=== PATIENT | female | born 1955 | race Caucasian/White ===

== ENCOUNTER 2020-06-22 10:37 | Observation (INO) ==
[2020-06-22] MEDS ORDERED: 0.9 % Sodium Chloride 1,000 ML IVC ONE (11:18)
[2020-06-22 11:35] LABS: Basophils % 0.1 %; Eosinophils # 0.1 K/mcL (0.0-0.6); Eosinophils % 0.3 %; Hematocrit 43.4 % (35.3-44.9); Hemoglobin 13.9 g/dL (11.5-15.4); Immature Granulocytes % 0.4 % (0-4); Lymphocytes # 1.4 K/mcL (0.6-4.6); Lymphocytes % 8.9 %; Mean Corpuscular Hemoglobin 30.8 pg (28.0-33.3); Mean Platelet Volume 8.8 fL (9.4-12.4); Monocytes # 1.3 K/mcL (0.0-1.3); Monocytes % 8.2 %; Neutrophils # 12.9 K/mcL (1.6-8.9); Platelet Count 327 K/mcL (140-400); Red Blood Count 4.52 M/mcL (3.82-4.97); Red Cell Distribution Width 16.1 % (11.5-14.5); Segmented Neutrophils % 82.1 %; White Blood Count 15.8 K/mcL (4.3-11.1)
[2020-06-22 11:43] LABS: INR 1.3
[2020-06-22 11:45] LABS: Activated Partial Thrombo Time 27.7 Seconds (26.0-36.0)
[2020-06-22 11:57] LABS: BUN/Creatinine Ratio 26 (6-26); Blood Urea Nitrogen 20 mg/dL (8-23); Carbon Dioxide 19 mEq/L (23-29); Chloride 102 mEq/L (98-107); Potassium 3.3 mEq/L (3.5-5.1); Sodium 133 mEq/L (136-145); eGFR For African Americans > 60 (> 60)
[2020-06-22 11:58] LABS: Alanine Aminotransferase 11 Units/L (7-52); Albumin 3.9 g/dL (3.5-5.7); Albumin/Globulin Ratio 1.2 (1.1-2.2); Alkaline Phosphatase 44 Units/L (34-104); Aspartate Amino Transferase 11 Units/L (13-39); Bilirubin,Direct 0.1 mg/dL (0.0-0.2); Bilirubin,Indirect 0.4 mg/dL (0.0-1.0); Bilirubin,Total 0.5 mg/dL (0.3-1.0); Calcium 9.1 mg/dL (8.6-10.3); Globulin 3.3 g/dL (2.4-3.5); Glucose 129 mg/dL (70-105); Osmolality,Calculated 280 (280-300); Total Protein 7.2 g/dL (6.4-8.9); Troponin I < 0.03 ng/mL (< 0.04); eGFR For Non-African Americans > 60 (> 60)
[2020-06-22] MEDS ORDERED: Potassium Chloride Elixir 20 MEQ/15 ML UDC PO ONE (12:18)
[2020-06-22 16:49] LABS: Adenovirus Not Detected (Not Detect); Bordetella Pertussis Not Detected (Not Detect); Chlamydophila pneumoniae Not Detected (Not Detect); Coronavirus 229E Not Detected (Not Detect); Coronavirus HKU1 Not Detected (Not Detect); Coronavirus NL63 Not Detected (Not Detect); Coronavirus OC43 Not Detected (Not Detect); Human Metapneumovirus Not Detected (Not Detect); Human Rhinovirus/Enterovirus Not Detected (Not Detect); Influenza A Subtype 2009 H1 Not Detected (Not Detect); Influenza B Not Detected (Not Detect); Mycoplasma pneumoniae Not Detected (Not Detect); Parainfluenza Virus 1 Not Detected (Not Detect); Parainfluenza Virus 2 Not Detected (Not Detect); Parainfluenza Virus 3 Not Detected (Not Detect); Parainfluenza Virus 4 Not Detected (Not Detect); Respiratory Syncytial Virus Not Detected (Not Detect); SARS-CoV-2 Not Detected (Not Detect)
[2020-06-22] MEDS ORDERED: Ondansetron 4 MG/2 ML VIAL IVP PRN (17:42)
[2020-06-22] MEDS ORDERED: Naloxone 0.4 MG/ML INJ IVP PRN (17:42)
[2020-06-22] MEDS ORDERED: D5% in Water 1,000 ML IVC PRN ×2 (18:29→18:33)
[2020-06-22] MEDS ORDERED: *HR* Dextrose 50 % in Water (Vial) 50 ML VIAL IVP PRN ×2 (18:29→18:33)
[2020-06-22] MEDS ORDERED: Dextrose Gel 15 GM/37.5 ML TUBE PO PRN ×4 (18:29→18:33)
[2020-06-22] MEDS ORDERED: Vancomycin 1,500 MG/265 ML IV.SOLN IVPB ONE (19:54)
[2020-06-22] MEDS ORDERED: Ipratropium/Albuterol Neb 3 ML IH PRN (20:30)
[2020-06-22] MEDS: Baclofen 10 MG TABLET PO SCH (21:30)
[2020-06-22] MEDS: Topiramate 100 MG TABLET PO SCH (21:30)
[2020-06-22] MEDS: Gabapentin 300 MG CAPSULE PO SCH (21:30)
[2020-06-22] MEDS: Insulin LISPRO 300 UNITS/3 ML VIAL SUBQ SCH (21:31)
[2020-06-22] MEDS: 0.9 % Sodium Chloride 1,000 ML IVC SCH (21:32)
[2020-06-22] MEDS: levoFLOXacin 750 MG/150 ML 750 MG/150 ML BAG IVPB SCH (22:02)
[2020-06-22 22:48] LABS: Amorphous Sediment,Urine Few per hpf (None-Few); Bacteria,Urine Few per hpf (None-Few); Bilirubin,Urine Negative (Negative); Blood,Urine Moderate (Negative); Clarity,Urine Turbid (Clear); Color,Urine Light-Yellow (Yellow); Glucose,Urine (UA) Normal (Normal); Ketones,Urine Negative (Negative); Leukocyte Esterase,Urine Large (Negative); Mucus,Urine Few per lpf (None-Few); Nitrite,Urine Negative (Negative); Protein,Urine Trace mg/dL (Neg-Trace); Specific Gravity,Urine 1.014 (1.010-1.025); Squamous Epithelial Cell,Urine Few per hpf (None-Few); Urobilinogen,Urine Normal (Normal); WBC,Urine TNTC per hpf (0-3)
[2020-06-23 04:28] LABS: Basophils % 0.3 %; Eosinophils # 0.1 K/mcL (0.0-0.6); Eosinophils % 1.1 %; Hematocrit 40.2 % (35.3-44.9); Immature Granulocytes % 1.2 % (0-4); Lymphocytes # 1.5 K/mcL (0.6-4.6); Lymphocytes % 14.5 %; Mean Corpuscular HGB Conc 30.6 g/dL (31.6-35.5); Mean Corpuscular Hemoglobin 30.1 pg (28.0-33.3); Mean Corpuscular Volume 98.5 fL (83.0-100.0); Mean Platelet Volume 8.8 fL (9.4-12.4); Monocytes % 9.2 %; Neutrophils # 7.8 K/mcL (1.6-8.9); Platelet Count 280 K/mcL (140-400); Red Blood Count 4.08 M/mcL (3.82-4.97); Segmented Neutrophils % 73.7 %; White Blood Count 10.6 K/mcL (4.3-11.1)
[2020-06-23 04:50] LABS: Hemoglobin 12.3 g/dL (11.5-15.4)
[2020-06-23 04:51] LABS: BUN/Creatinine Ratio 27 (6-26); Blood Urea Nitrogen 16 mg/dL (8-23); Calcium 8.4 mg/dL (8.6-10.3); Carbon Dioxide 19 mEq/L (23-29); Chloride 110 mEq/L (98-107); Glucose 113 mg/dL (70-105); Magnesium 1.9 mg/dL (1.6-2.6); Osmolality,Calculated 284 (280-300); Sodium 136 mEq/L (136-145); eGFR For African Americans > 60 (> 60); eGFR For Non-African Americans > 60 (> 60)
[2020-06-23 04:59] LABS: Thyroid Stimulating Hormone 0.278 mcIU/mL (0.340-5.600)
[2020-06-23] MEDS: Acetaminophen 325 MG TABLET PO PRN ×2 (05:12→20:50)
[2020-06-23 05:17] LABS: Estimated Average Glucose 146 mg/dl; Hemoglobin A1C 6.7 %
[2020-06-23] MEDS: 0.9 % Sodium Chloride 1,000 ML IVC SCH ×3 (06:19→23:14)
[2020-06-23] MEDS: *HR* Enoxaparin 40 MG/0.4 ML SYRINGE SQ SCH (06:20)
[2020-06-23] MEDS: Insulin LISPRO 300 UNITS/3 ML VIAL SUBQ SCH ×4 (07:39→20:46)
[2020-06-23] MEDS: Gabapentin 300 MG CAPSULE PO SCH ×3 (09:41→20:46)
[2020-06-23] MEDS: Topiramate 100 MG TABLET PO SCH ×2 (09:41→20:47)
[2020-06-23] MEDS: ARIPiprazole 5 MG TABLET PO SCH (09:41)
[2020-06-23] MEDS: Vancomycin 1,250 MG/262.5 ML IV.SOLN IVPB SCH ×2 (09:42→20:48)
[2020-06-23] MEDS: Baclofen 10 MG TABLET PO SCH ×3 (09:42→20:46)
[2020-06-23] MEDS: levoFLOXacin 750 MG/150 ML 750 MG/150 ML BAG IVPB SCH (09:43)
[2020-06-24] MEDS: *HR* Enoxaparin 40 MG/0.4 ML SYRINGE SQ SCH (06:00)
[2020-06-24 06:41] VITALS: BP 122/73
[2020-06-24 07:53] LABS: Basophils % 0.2 %; Eosinophils # 0.3 K/mcL (0.0-0.6); Eosinophils % 2.9 %; Hematocrit 37.5 % (35.3-44.9); Hemoglobin 11.6 g/dL (11.5-15.4); Immature Granulocytes % 0.3 % (0-4); Lymphocytes # 2.1 K/mcL (0.6-4.6); Lymphocytes % 22.9 %; Mean Corpuscular HGB Conc 30.9 g/dL (31.6-35.5); Mean Corpuscular Hemoglobin 30.8 pg (28.0-33.3); Mean Corpuscular Volume 99.5 fL (83.0-100.0); Mean Platelet Volume 9.5 fL (9.4-12.4); Monocytes % 10.9 %; Neutrophils # 5.6 K/mcL (1.6-8.9); Platelet Count 276 K/mcL (140-400); Red Blood Count 3.77 M/mcL (3.82-4.97); Red Cell Distribution Width 15.7 % (11.5-14.5); Segmented Neutrophils % 62.8 %
[2020-06-24] MEDS: Insulin LISPRO 300 UNITS/3 ML VIAL SUBQ SCH (08:03)
[2020-06-24 08:19] LABS: BUN/Creatinine Ratio 22 (6-26); Blood Urea Nitrogen 11 mg/dL (8-23); Calcium 8.6 mg/dL (8.6-10.3); Carbon Dioxide 16 mEq/L (23-29); Chloride 112 mEq/L (98-107); Glucose 110 mg/dL (70-105); Magnesium 1.7 mg/dL (1.6-2.6); Osmolality,Calculated 284 (280-300); Potassium 3.8 mEq/L (3.5-5.1); Sodium 137 mEq/L (136-145); eGFR For African Americans > 60 (> 60); eGFR For Non-African Americans > 60 (> 60)
[2020-06-24] MEDS: ARIPiprazole 5 MG TABLET PO SCH (08:51)
[2020-06-24] MEDS: Baclofen 10 MG TABLET PO SCH (08:52)
[2020-06-24] MEDS: levoFLOXacin 750 MG/150 ML 750 MG/150 ML BAG IVPB SCH (08:52)
[2020-06-24] MEDS: Gabapentin 300 MG CAPSULE PO SCH (08:52)
[2020-06-24] MEDS: Topiramate 100 MG TABLET PO SCH (08:52)
[2020-06-24] MEDS ORDERED: lisinopriL 5 MG TABLET PO SCH (09:00)
[2020-06-24] MEDS: Acetaminophen 325 MG TABLET PO PRN (09:03)
[2020-06-24] MEDS: 0.9 % Sodium Chloride 1,000 ML IVC SCH (09:04)
[2020-06-24] MEDS ORDERED: Propranolol LA (24 HR) 80 MG CAP.SA.24H PO SCH (17:00)
== END 2020-06-24 13:07 | disposition home or self-care (01) ==
LOC: EMEROOARM 10:37 → 2ANU 10:37 → SUATTDRO 16:59 → 2ANU 18:25
PROVIDERS: ADMIT Pharmacist; ATTEND Pharmacist

== ENCOUNTER 2021-01-05 06:17 | Inpatient (IN) ==
[2021-01-05] MEDS ORDERED: *HR* Propofol 200 MG/20 ML VIAL IVP ONE (07:00)
[2021-01-05] MEDS ORDERED: *HR* FentaNYL (PF) 100 MCG/2 ML VIAL ONE ×2 (07:00→08:37)
[2021-01-05] MEDS ORDERED: Ringers Solution, Lactated 1,000 ML IVC SCH (07:00)
[2021-01-05] MEDS ORDERED: *HR* Midazolam HCl 2 MG/2 ML VIAL ONE (07:00)
[2021-01-05] MEDS ORDERED: Ondansetron 4 MG/2 ML VIAL ONE (07:00)
[2021-01-05] MEDS ORDERED: *HR* Rocuronium Bromide 50 MG/5 ML VIAL ONE ×2 (07:00→10:39)
[2021-01-05] MEDS ORDERED: Lidocaine -MPF 4% 5 ML AMPUL ONE (07:00)
[2021-01-05] MEDS ORDERED: Lidocaine -MPF 2% 2 ML VIAL ONE (07:00)
[2021-01-05] MEDS ORDERED: *HR* Succinylcholine 200 MG/10 ML VIAL IVP ONE (07:00)
[2021-01-05] MEDS ORDERED: *HR* HYDROmorphone PF 0.5 MG/0.5 ML SYRINGE IVP PRN (07:08)
[2021-01-05] MEDS ORDERED: Ondansetron ODT 4 MG TAB.RAPDIS SL ONE (07:08)
[2021-01-05] MEDS ORDERED: *HR* FentaNYL (PF) 100 MCG/2 ML VIAL IVP PRN ×2 (07:08→12:45)
[2021-01-05] MEDS ORDERED: Famotidine 20 MG/2 ML VIAL IVP ONE (07:08)
[2021-01-05] MEDS ORDERED: Acetaminophen IV 1,000 MG/100 ML BAG IVPB ONE (07:10)
[2021-01-05] MEDS ORDERED: CeFAZolin Syr 2,000MG/20 ML 2,000 MG/20 ML SYRINGE IVPB ONE (07:16)
[2021-01-05] MEDS ORDERED: EPHEDrine 50 MG/ML VIAL ONE (07:54)
[2021-01-05] MEDS ORDERED: Bupivacaine/EPI 1:200k 0.25% 50 ML VIAL ONE (08:24)
[2021-01-05] MEDS ORDERED: Sugammadex Sodium 200 MG/2 ML VIAL IV ONE (11:24)
[2021-01-05] MEDS ORDERED: *HR* HYDROMORPHONE 2 MG/ML VIAL ONE (11:28)
[2021-01-05] MEDS ORDERED: Ipratropium/Albuterol Neb 3 ML IH ONE (12:15)
[2021-01-05] MEDS ORDERED: Ipratropium/Albuterol Neb 3 ML ONE (12:20)
[2021-01-05] MEDS ORDERED: *HR* Dextrose 50 % in Water (Vial) 50 ML VIAL IVP PRN (12:45)
[2021-01-05] MEDS ORDERED: D5% in Water 1,000 ML IVC PRN (12:45)
[2021-01-05] MEDS ORDERED: Naloxone 0.4 MG/ML INJ IVP PRN (12:45)
[2021-01-05] MEDS ORDERED: Benzonatate 100 MG CAPSULE PO PRN (12:45)
[2021-01-05] MEDS ORDERED: Ketorolac 15 MG/ML VIAL IVP PRN (12:45)
[2021-01-05] MEDS ORDERED: Dextrose Gel 15 GM/37.5 ML TUBE PO PRN ×2 (12:45)
[2021-01-05] MEDS ORDERED: Albuterol Neb 0.63 MG/3 ML VIAL IH PRN (12:45)
[2021-01-05] MEDS ORDERED: Ondansetron 4 MG/2 ML VIAL IVP PRN (12:45)
[2021-01-05] MEDS: Acetaminophen IV 1,000 MG/100 ML BAG IVPB SCH ×2 (13:38→18:16)
[2021-01-05] MEDS: Baclofen 10 MG TABLET PO SCH ×2 (13:57→21:03)
[2021-01-05] MEDS: Gabapentin 400 MG CAPSULE PO SCH ×2 (13:57→21:02)
[2021-01-05] MEDS: 0.9 % Sodium Chloride 1,000 ML IVC SCH (13:57)
[2021-01-05] MEDS ORDERED: Propranolol LA (24 HR) 80 MG CAP.SA.24H PO SCH (17:00)
[2021-01-05] MEDS: CeFAZolin 2 GM/120 ML BAG IVPB SCH (17:20)
[2021-01-05] MEDS: Insulin LISPRO 300 UNITS/3 ML VIAL SUBQ SCH (17:38)
[2021-01-05] MEDS: Budesonide/Formoterol 80/4.5 1 PUFF INH IH SCH (19:47)
[2021-01-06] MEDS: Acetaminophen IV 1,000 MG/100 ML BAG IVPB SCH ×2 (02:12→07:42)
[2021-01-06 03:32] VITALS: PULSE 62
[2021-01-06 05:10] LABS: Hemoglobin 11.9 g/dL (11.5-15.4); Mean Corpuscular HGB Conc 32.2 g/dL (31.6-35.5); Mean Corpuscular Hemoglobin 33.7 pg (28.0-33.3); Mean Corpuscular Volume 104.8 fL (83.0-100.0); Mean Platelet Volume 9.4 fL (9.4-12.4); Platelet Count 250 K/mcL (140-400); Red Blood Count 3.53 M/mcL (3.82-4.97); Red Cell Distribution Width 12.7 % (11.5-14.5); White Blood Count 11.6 K/mcL (4.3-11.1)
[2021-01-06 05:30] LABS: BUN/Creatinine Ratio 19 (6-26); Blood Urea Nitrogen 14 mg/dL (8-23); Calcium 8.4 mg/dL (8.6-10.3); Carbon Dioxide 20 mEq/L (23-29); Chloride 111 mEq/L (98-107); Glucose 114 mg/dL (70-105); Osmolality,Calculated 289 (280-300); Potassium 3.6 mEq/L (3.5-5.1); Sodium 139 mEq/L (136-145); eGFR For African Americans > 60 (> 60); eGFR For Non-African Americans > 60 (> 60)
[2021-01-06] MEDS: CeFAZolin 2 GM/120 ML BAG IVPB SCH (07:11)
[2021-01-06] MEDS: 0.9 % Sodium Chloride 1,000 ML IVC SCH (07:17)
[2021-01-06 07:28] VITALS: BP 111/54; TEMP 98.8
[2021-01-06] MEDS: Insulin LISPRO 300 UNITS/3 ML VIAL SUBQ SCH ×2 (07:41→11:13)
[2021-01-06] MEDS: Budesonide/Formoterol 80/4.5 1 PUFF INH IH SCH (07:41)
[2021-01-06] MEDS: Gabapentin 400 MG CAPSULE PO SCH (07:59)
[2021-01-06] MEDS: Baclofen 10 MG TABLET PO SCH (08:00)
[2021-01-06 08:19] VITALS: O2SAT 96
[2021-01-06] MEDS ORDERED: lisinopriL 5 MG TABLET PO SCH (09:00)
[2021-01-06] MEDS ORDERED: Famotidine 20 MG TABLET PO SCH (09:00)
[2021-01-06] MEDS ORDERED: ARIPiprazole 5 MG TABLET PO SCH (09:00)
== END 2021-01-06 12:27 | disposition home or self-care (01) | DRG 743 ==
LOC: SAMDAY 06:17 → 3BNU 12:35
PROVIDERS: ADMIT Urology; ATTEND Urology
PROC: [UNRECOGNIZED PROCEDURE] (2021-01-05 07:45)